=== PATIENT | female | born 1980 | race African-American/Black ===

== ENCOUNTER 2017-06-27 08:30 | Emergency (ER) | payer MEDICAID ==
[~2017-06-27] VITALS: Ht 167.6 cm; Wt 54.4 kg
--- NOTE | ~2017-06-27 | CT71 ---
[facility] A Service of [facility] RADIOLOGY TEXT RESULTS PATIENT: CHRISTINE BLAND LOCATION: [facility] : 82 UNIT #: [id number] AGE: [address]: Judy Lozada SEX: F ORDER DR: [id number] [facility] [address] [place], [place] [address] [id number] E MR#: [id number] Acc #: [id number] NAME: CHRISTINE BLAND : 1980 SEX: F STUDY DATE/TIME: 06/27/2017 9:48 UNIT: CFTX ROOM: STUDY DESCRIPTION: CT Head Wo Contrast Attending Physician: Judy Lozada P.A.-C. Ordering Physician: Judy Lozada P.A.-C. Primary Care Physician: No Primary Care Physician MEDICAL IMAGING REPORT This report is preliminary unless electronic signature is present EXAM CT head without contrast 06/27/2017. HISTORY 36-year-old female with daily headaches for 3 weeks. No history of trauma. COMPARISON None. TECHNIQUE Routine unenhanced axial images performed through the brain. This CT exam was performed with one or more of the following radiation dose reduction techniques: automatic exposure control, adjustment of mA and/or kV according to patient size, and iterative reconstruction. FINDINGS No hemorrhage, acute infarction, mass lesion, or abnormal extraaxial fluid collection. No midline shift or focal mass effect. Ventricular system normal size configuration. No acute bony abnormality. Visualized paranasal sinuses and mastoid air cells are clear. IMPRESSION Negative unenhanced head CT. Dictated by... Sean Kate M.D. THIS IS AN ELECTRONICALLY VERIFIED REPORT Sean Kate M.D. at 06/27/2017 4:30 PM JLESVIA/simona TD: 06/27/2017 11:54 [facility] A Service [facility] RADIOLOGY TEXT RESULTS PATIENT: CHRIST[facility] BLAND [id number] [birth year] UNIT #: [id number] AGE: [address]: Judy Lozada SEX: F ORDER DR: JOB #: [id number] MEDICAL IMAGING REPORT Page 1 of 1 COPY
--- NOTE | ~2017-06-27 | CR181 ---
[facility] A Service of [facility] RADIOLOGY TEXT RESULTS PATIENT: CHRISTINE BLAND LOCATION: [facility] : 82 UNIT #: [id number] AGE: [address]: Judy Lozada SEX: F ORDER DR: [id number] [facility] [address] [place], [place] [address] [id number] E MR#: [id number] Acc #: [id number] NAME: CHRISTINE BLAND : 1980 SEX: F STUDY DATE/TIME: 06/27/2017 9:17 UNIT: TX ROOM: STUDY DESCRIPTION: CR Lumbar Spine 2 or 3 Views Attending Physician: Judy Lozada P.A.-C. Ordering Physician: Judy Lozada P.A.-C. Primary Care Physician: No Primary Care Physician MEDICAL IMAGING REPORT This report is preliminary unless electronic signature is present EXAM Lumbar spine, 3 views. INDICATIONS Low back pain for the 1 day. COMPARISON No comparisons. FINDINGS There is mild disc space narrowing at L5-S1. Vertebral body heights and alignment are maintained. IMPRESSION Mild disc space narrowing at L5-S1. Dictated by... Jeison Pinon M.D. THIS IS AN ELECTRONICALLY VERIFIED REPORT Jeison Pinon M.D. at 06/28/2017 2:47 PM ARS/mario TD: 06/27/2017 11:31 JOB #: [id number] MEDICAL IMAGING REPORT Page 1 of 1 COPY
[~2017-06-27 08:30] MED LIST: PHENERGAN PO; PROBIOTIC1 EAC4
[2017-06-27 09:04] LABS: URINE SOURCE CLEAN CATCH
[2017-06-27 09:13] LABS: URINE APPEARANCE CLEAR; URINE BILIRUBIN NEG (NEG); URINE BLOOD TRACE (NEG); URINE COLOR YELLOW; URINE GLUCOSE NEG (NEG); URINE KETONE NEG (NEG); URINE LEUKOCYTE ESTERASE TRACE (NEG); URINE NITRATE NEG (NEG); URINE PH 5.5 (5-8); URINE PROTEIN NEG (NEG); URINE SPECIFIC GRAVITY 1.023 (1.003-1.035); URINE UROBILINOGEN 0.2 MG/DL (NEG)
[2017-06-27 09:16] LABS: URBCS1 AUWI 0-2 /[HPF] (0-2); URINE BACTERIA AUWI NEG (NEGATIVE); URINE SQUAMOUS EPITHELIAL CELL OCC /[HPF]
[2017-06-27 09:17] LABS: CULTURE INDICATED? NO
== END 2017-06-27 10:30 | disposition home or self-care (01) ==
LOC: CED 08:30 → CFTX 08:30
PROVIDERS: Physician Assistant
DX: M51.17 Intervertebral disc disorders with radiculopathy, lumbosacral region (principal); R51 Headache; J45.909 Unspecified asthma, uncomplicated; Z87.891 Personal history of nicotine dependence
CPT/HCPCS: 70450; 72100; 81003; 84703; 96372; 99284; J1885